=== PATIENT | female | born 1935 | race Caucasian/White ===

== ENCOUNTER 2023-12-13 14:53 | Emergency (ER) | payer OTHER ==
[2023-12-13 16:28] VITALS: BP 135/66; PULSE 74; RESP 18; TEMP 97.5; BMI 21.1
[2023-12-13 17:33] LABS: HEMATOCRIT 43.6 % (32.4-45.2); HEMOGLOBIN 14.2 G/dL (10.7-15.3); MCH 30.1 pg (25.7-33.7); MCHC 32.6 g/dl (32.0-36.0); MEAN CELL VOLUME 92.1 fl (80-96); MEAN PLT VOLUME 8.8 fl (7.5-11.1); PLATELET COUNT 233.5 10^3/uL (134-434); RBC 4.73 10^6/uL (3.60-5.2); RDW 13.9 % (11.6-15.6); WHITE BLOOD COUNT 6.5 10^3/uL (4.0-10.8)
[2023-12-13 17:47] LABS: PLATELET ESTIMATE ADEQUATE
[2023-12-13 17:50] LABS: ALBUMIN 4.4 g/dl (3.4-5.0); BILIRUBIN,TOTAL 0.7 mg/dl (0.2-1); CALCIUM 9.9 mg/dl (8.5-10.1); CREATININE 0.8 mg/dl (0.6-1.3); POTASSIUM 3.4 mmol/L (3.5-5.1)
== END 2023-12-13 18:48 | disposition home or self-care (01) ==
LOC: FER 14:53
DX: R07.9 Chest pain, unspecified (principal)
CPT/HCPCS: 36415; 71046-TC-FY; 80053; 84484; 85027; 93005; 99285-25

== ENCOUNTER 2023-12-31 13:45 | Emergency (ER) | payer OTHER ==
[2023-12-31 14:59] VITALS: BP 147/73; PULSE 73; RESP 16; TEMP 97.9; BMI 22.1
[2023-12-31] MEDS ORDERED: ACETAMINOPHEN 325 MG TABLET (FP) ONE (15:27)
[2023-12-31] MEDS: ACETAMINOPHEN 325 MG TABLET (FP) PO ONE (15:29)
== END 2023-12-31 15:33 | disposition home or self-care (01) ==
LOC: FER 13:45
DX: R05.9 Cough, unspecified (principal); R07.89 Other chest pain
CPT/HCPCS: 99284-25

== ENCOUNTER 2024-02-06 11:48 | Emergency (ER) | payer OTHER ==
[2024-02-06 11:58] VITALS: BP 161/80; PULSE 66; RESP 16; TEMP 98.4; BMI 21.2
[2024-02-06] MEDS: SODIUM CHLORIDE FOR INHALATION 3 ML VIAL.NEB IH ONE (12:28)
[2024-02-06] MEDS ORDERED: ACETAMINOPHEN 325 MG TABLET (FP) ONE (13:10)
[2024-02-06] MEDS: ACETAMINOPHEN 325 MG TABLET (FP) PO ONE (13:12)
== END 2024-02-06 13:40 | disposition home or self-care (01) ==
LOC: FER 11:48
DX: R09.89 Other specified symptoms and signs involving the circulatory and respiratory systems (principal); R05.9 Cough, unspecified; Z20.822 Contact with and (suspected) exposure to COVID-19
CPT/HCPCS: 0241U-QW; 71046-TC-FY; 99284-25

== ENCOUNTER 2024-03-15 14:00 | Emergency (ER) | payer OTHER ==
[2024-03-15 14:17] VITALS: BP 159/78; PULSE 80; RESP 16; TEMP 97.8; BMI 21.9
[2024-03-15] MEDS ORDERED: ACETYLCYSTEINE 20% 200MG/ML 4 ML VIAL *FOR ORAL / INH USE ONLY ONE (14:21)
[2024-03-15] MEDS: ACETYLCYSTEINE 20% 200MG/ML 30 ML VIAL *FOR ORAL / INH USE ONLY NEB ONE (14:26)
[2024-03-15] MEDS ORDERED: ACETAMINOPHEN 325 MG TABLET (FP) ONE (15:43)
[2024-03-15] MEDS: ACETAMINOPHEN 325 MG TABLET (FP) PO ONE (15:45)
== END 2024-03-15 15:55 | disposition home or self-care (01) ==
LOC: FER 14:00
PROC: 3E0F7GC Introduction of Other Therapeutic Substance into Respiratory Tract, Via Natural or Artificial Opening (ICD-10-PCS; principal; 2024-03-15)
DX: R09.89 Other specified symptoms and signs involving the circulatory and respiratory systems (principal); R05.9 Cough, unspecified; M25.562 Pain in left knee; G89.29 Other chronic pain; Z20.822 Contact with and (suspected) exposure to COVID-19
CPT/HCPCS: 0241U-QW; 71046-TC-FY; 94640; 99284-25

== ENCOUNTER 2024-04-04 12:29 | Emergency (ER) | payer OTHER ==
[2024-04-04] MEDS ORDERED: ACETYLCYSTEINE 20% 200MG/ML 4 ML VIAL *FOR ORAL / INH USE ONLY ONE (12:51)
[2024-04-04] MEDS ORDERED: ACETAMINOPHEN 325 MG TABLET (FP) ONE (12:51)
[2024-04-04] MEDS: ACETYLCYSTEINE 20% 200MG/ML 30 ML VIAL *FOR ORAL / INH USE ONLY NEB ONE (12:58)
[2024-04-04 13:00] VITALS: BP 176/80; PULSE 70; RESP 17; TEMP 97.3; BMI 21.9
[2024-04-04] MEDS: ACETAMINOPHEN 325 MG TABLET (FP) PO ONE (13:00)
== END 2024-04-04 13:20 | disposition home or self-care (01) ==
LOC: FER 12:29
PROC: 3E0F7GC Introduction of Other Therapeutic Substance into Respiratory Tract, Via Natural or Artificial Opening (ICD-10-PCS; principal; 2024-04-04)
DX: R09.81 Nasal congestion (principal); M25.562 Pain in left knee
CPT/HCPCS: 94640; 99283-25

== ENCOUNTER 2024-04-18 13:39 | Emergency (ER) | payer OTHER ==
[2024-04-18 14:22] VITALS: BP 156/83; PULSE 73; RESP 18; TEMP 98.1; BMI 21.7
== END 2024-04-18 15:42 | disposition home or self-care (01) ==
LOC: FER 13:39
DX: R07.89 Other chest pain (principal); R09.89 Other specified symptoms and signs involving the circulatory and respiratory systems
CPT/HCPCS: 93005; 99283-25

== ENCOUNTER 2024-04-21 14:03 | Emergency (ER) | payer OTHER ==
[2024-04-21 14:55] VITALS: BP 132/70; PULSE 89; RESP 18; TEMP 98.2; BMI 21.4
[2024-04-21 16:16] LABS: HEMATOCRIT 41.5 % (32.4-45.2); HEMOGLOBIN 13.8 G/dL (10.7-15.3); MCH 30.2 pg (25.7-33.7); MCHC 33.3 g/dl (32.0-36.0); MEAN CELL VOLUME 90.9 fl (80-96); MEAN PLT VOLUME 9.2 fl (7.5-11.1); PLATELET COUNT 242.3 10^3/uL (134-434); RBC 4.57 10^6/uL (3.60-5.2); RDW 14.8 % (11.6-15.6); WHITE BLOOD COUNT 6.7 10^3/uL (4.0-10.8)
[2024-04-21 16:19] LABS: PLATELET ESTIMATE ADEQUATE
[2024-04-21 16:20] LABS: ALBUMIN 4.2 g/dl (3.4-5.0); BILIRUBIN,TOTAL 0.8 mg/dl (0.2-1); CALCIUM 9.7 mg/dl (8.5-10.1); CREATININE 0.8 mg/dl (0.6-1.3); POTASSIUM 3.5 mmol/L (3.5-5.1); TOT PROT 6.2 g/dl (6.4-8.2)
== END 2024-04-21 19:44 | disposition home or self-care (01) ==
LOC: FER 14:03
DX: L98.9 Disorder of the skin and subcutaneous tissue, unspecified (principal); R09.A2 Foreign body sensation, throat; Z20.822 Contact with and (suspected) exposure to COVID-19
CPT/HCPCS: 0241U-QW; 36415; 70491-TC; 71260-TC; 80053; 84484; 85027; 93005; 99285-25; Q9967